=== PATIENT | male | born 2000 | race Caucasian/White ===

== ENCOUNTER 2023-06-05 14:08 | Outpatient (CLI) | payer MEDICARE | END 2023-06-05 14:09 | disposition home or self-care (01) | LOC: EEG 14:08 | PROVIDERS: ATTEND Psychiatry & Neurology Neurology | DX: G40.209 Localization-related (focal) (partial) symptomatic epilepsy and epileptic syndromes with complex partial seizures, not intractable, without status epilepticus (principal) | CPT/HCPCS: 95816; 95957 ==